=== PATIENT | male | born 1975 | race Hispanic/Latino ===

== ENCOUNTER 2020-02-10 23:06 | Inpatient (IN) | payer SELFPAY ==
[2020-02-10] MEDS ORDERED: Boostrix 0.5 ML (Tdap) VIAL ONE (23:09)
[2020-02-10] MEDS ORDERED: Fentanyl 100 MCG/2 ML VIAL ONE ×2 (23:15→23:30)
[2020-02-10 23:31] LABS: #Basophils 0.1 thou/uL (0.0-0.2); #Eosinphils 0.1 thou/uL (0.0-0.7); #Lymphocytes 3.2 thou/uL (1.20-3.40); #Monocytes 0.7 thou/uL (0.11-0.59); %Basophils 0.8 % (0.0-1.0); %Eosinophils 1.4 % (0.0-10.0); %Lymphocytes 35.3 % (21.0-51.0); %Monocytes 7.3 % (0.0-10.0); %Neutrophils 55.3 % (42.0-75.0); Hemoglobin 17.4 g/dL (14.0-18.0); Mean Corpuscular HGB CONC 33.5 g/dL (32.0-36.0); Mean Corpuscular Hemoglobin 30.4 pg (27.0-31.0); Mean Corpuscular Volume 90.8 fL (78.0-98.0); Mean Platelet Volume 8.4 fL (7.4-10.4); Platelet Count 288 thou/uL (130-400); RBC Distribution Width 12.1 % (11.5-14.5); Red Blood Cell (RBC) Count 5.71 mill/uL (4.70-6.10); White Blood Cell (WBC) Count 9.1 thou/uL (4.8-10.8)
[2020-02-10 23:45] LABS: INR-International Normal Ratio 0.9; Prothrombin Time 12.1 sec (12.0-14.7)
[2020-02-10 23:46] LABS: PTT 33.2 sec (22.9-36.1)
[2020-02-10 23:53] LABS: ALT (SGPT) 43 U/L (8-55); AST (SGOT) 31 U/L (5-34); Albumin 4.6 g/dL (3.5-5.0); Alkaline Phosphatase 81 U/L (40-110); Anion Gap 17 mmol/L (10-20); BUN (Urea Nitrogen) 9 mg/dL (8.9-20.6); Bilirubin, Total 0.3 mg/dL (0.2-1.2); Calc. Creatinine Clearance 0 mL/min (70-130); Calcium 9.1 mg/dL (7.8-10.44); Carbon Dioxide 25 mmol/L (22-29); Chloride 105 mmol/L (98-107); Estimated GFR-MDRD 90; Globulin 3.9 g/dL (2.4-3.5); Glucose 119 mg/dL (70-105); Protein, Total 8.5 g/dL (6.0-8.3); Sodium 143 mmol/L (136-145)
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
[2020-02-11 00:10] LABS: Phosphorus 5.3 mg/dL (2.3-4.7)
[2020-02-11 00:14] LABS: Magnesium 2.6 mg/dL (1.6-2.6)
[2020-02-11] MEDS ORDERED: Dextrose 5% in Water 1,000 ML IV PRN (00:26)
[2020-02-11] MEDS ORDERED: Morphine 4 MG/ML VIAL SLOW IVP PRN (00:26)
[2020-02-11] MEDS ORDERED: Ondansetron PF 4 MG/2 ML Vial IVP PRN (00:26)
[2020-02-11] MEDS ORDERED: Dextrose 50% Abboject 50 ML SYRINGE SLOW IVP PRN (00:26)
[2020-02-11] MEDS ORDERED: Cyclobenzaprine 10 MG TAB PO PRN (00:38)
[2020-02-11] MEDS ORDERED: Heparin 10,000 UNITS/ 10 ML VIAL ONE ×2 (00:57→07:48)
[2020-02-11] MEDS ORDERED: Heparin 5,000 UNITS/ML VIAL ONE (00:57)
[2020-02-11] MEDS ORDERED: Bupivacaine PF 0.5% 30 ML VIAL ONE (00:57)
[2020-02-11] MEDS ORDERED: Sodium Chloride 0.9% 10 ML ONE ×2 (00:58→02:58)
[2020-02-11] MEDS ORDERED: Hetastarch 6% 500 ML 0 ML ONE (00:58)
[2020-02-11] MEDS ORDERED: Bacitracin Zinc Ointment 30 gm TUBE ONE (00:58)
[2020-02-11] MEDS ORDERED: Lidocaine 2% PF 5 ML VIAL ONE ×2 (00:58→07:43)
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
[2020-02-11] MEDS ORDERED: Thrombin 5000 UNITS/5 ML VIAL ONE (00:59)
[2020-02-11] MEDS ORDERED: HYDROmorphone 2 MG/ML VIAL ONE (01:00)
[2020-02-11] MEDS ORDERED: Fentanyl 250 MCG/5 ML VIAL ONE (01:00)
[2020-02-11] MEDS ORDERED: Midazolam HCl 2 mg/2 ml Vial ONE (01:00)
[2020-02-11 01:15] LABS: SARS-CoV-2 NAA Rapid Test DETECTED (NotDetected)
[2020-02-11] MEDS ORDERED: PHENYLEPHRINE-NS 100 MCG/ML 10 ML SYRINGE ONE ×2 (05:51→10:21)
[2020-02-11] MEDS ORDERED: Hetastarch 6% 500 ML 500 ML ONE (07:18)
[2020-02-11] MEDS ORDERED: Phenylephrine 10 MG/ML VIAL ONE ×2 (07:18→08:22)
[2020-02-11] MEDS ORDERED: Succinylcholine 200 MG/10 ml SYRINGE FS ONE (10:21)
[2020-02-11] MEDS ORDERED: Rocuronium Bromide 10 MG/ML (10ML VIAL) ONE (10:21)
[2020-02-11] MEDS ORDERED: Dexamethasone 20 MG/5 ML VIAL ONE (10:21)
[2020-02-11] MEDS ORDERED: Ketorolac Tromethamine 30 MG/ML VIAL ONE (10:21)
[2020-02-11] MEDS ORDERED: Lidocaine 1% PF 5 ML VIAL ONE (10:21)
[2020-02-11] MEDS ORDERED: PROPOFOL 200 MG/20 ML VIAL ONE (10:21)
[2020-02-11] MEDS ORDERED: Ondansetron PF 4 MG/2 ML Vial ONE (10:21)
[2020-02-11] MEDS ORDERED: Glycopyrrolate 0.2 MG/ML 5 ML SYRINGE ONE (10:21)
[2020-02-11] MEDS ORDERED: diphenhydrAMINE 50 MG/ML VIAL ONE (10:21)
[2020-02-11] MEDS ORDERED: Ondansetron HCl/PF 4 MG/2 ML Vial IVP PRN (10:52)
[2020-02-11] MEDS ORDERED: Promethazine HCl 25 MG/ML VIAL SLOW IVP PRN (10:52)
[2020-02-11] MEDS ORDERED: Promethazine HCl 25 MG/ML VIAL IM PRN ×2 (10:52→12:06)
[2020-02-11] MEDS: Sodium Chloride 0.9% 1,000 ML IV SCH ×3 (11:00→15:28)
[2020-02-11] MEDS: Acetaminophen 500 MG TAB PO SCH ×5 (11:52→23:59)
[2020-02-11] MEDS: traMADol HCl 50 MG TAB PO SCH ×3 (11:53→18:20)
[2020-02-11] MEDS: Famotidine/PF 20 mg/2ml Vial SLOW IVP SCH ×2 (11:53→20:13)
[2020-02-11] MEDS ORDERED: Heparin 25,000 units/D5W 500 ML IV SCH (12:30)
[2020-02-11] MEDS ORDERED: traMADol HCl 50 MG TAB ONE (13:07)
[2020-02-11] MEDS: Gabapentin 300 MG CAP PO SCH ×3 (13:10→20:12)
[2020-02-11] MEDS: Senokot S 8.6-50 MG TAB PO SCH ×2 (13:10→20:11)
[2020-02-11] MEDS: Polyethylene Glycol 3350 17 GM Packet PO SCH (13:10)
[2020-02-11 13:28] LABS: Lactic Acid 1.6 mmol/L (0.5-2.2)
[2020-02-11 14:09] VITALS: BMI 30.4
[2020-02-11] MEDS ORDERED: Gabapentin 300 MG CAP ONE (14:26)
--- NOTE | 2020-02-11 14:33 | RAD ---
RIGHT WRIST: 02/11/20 Three fluoroscopic views are presented. INDICATIONS: Intraoperative imaging during reduction procedure. FINDINGS/IMPRESSION: Images demonstrate two metallic screws transfixing the distal ulna. POS: [facility]
[2020-02-11 21:05] LABS: Amphetamine Not Detected (NotDetected); Benzodiazepine Screen Not Detected (NotDetected); Cocaine Metabolite Screen Not Detected (NotDetected); Medtox Reader # READER 4; Methamphetamine Not Detected (NotDetected); Opiate Screen Not Detected (NotDetected); Phencyclidine (PCP) Not Detected (NotDetected); THC/Cannabinoid Screen Not Detected (NotDetected); Tricyclic Screen Not Detected (NotDetected)
[2020-02-11 21:06] LABS: Barbiturates Screen Not Detected (NotDetected); Medtox Control Line Valid? VALID (VALID); Methadone Not Detected (NotDetected); Oxycodone Screen Not Detected (NotDetected)
[2020-02-11] MEDS: Oxazepam 10 MG CAP PO SCH (22:14)
--- NOTE | 2020-02-12 01:53 | PRG ---
DATE OF SERVICE: 02/11/2020 SUBJECTIVE: The patient was seen this evening during rounds. He was lying in bed, resting comfortably with no signs of acute distress. He reported pain is well controlled. Neurosensory function in his right upper extremity digits is normal and intact. He has tolerated his clear liquid diet. OBJECTIVE: VITAL SIGNS: Temperature 98.6, pulse 87, respirations 14, oxygen saturation 100% on room air, and blood pressure 120/79. GENERAL: Well-appearing middle-aged male, sitting up in bed with no signs of acute distress. PULMONARY: Equal chest rise and fall. Clear breath sounds bilaterally. No signs of acute respiratory distress. CARDIAC: Regular rate and rhythm. GI: Abdomen is soft, nontender, and nondistended. EXTREMITIES: 2+ pulses in bilateral lower and left upper extremity. Right upper extremity with a cap refill. Motor and sensation in digits are warm. NEUROLOGIC: GCS is 15. ASSESSMENT: 1. Avulsion laceration to right medial wrist, about 6 to 8 cm. 2. Right distal radius and ulnar dislocation with radial fracture, open. 3. Acute alcohol intoxication, resolving. PLAN: Discontinue Garcia. Discontinue IV fluids. Advance to regular diet. Continue heparin drip per Dr. Cooper's recommendations. We will follow up with Dr. oCoper to see if there is additional need for operative intervention in the future. Job ID: [id number]
[2020-02-12] MEDS: Oxazepam 10 MG CAP PO SCH ×3 (06:30→21:40)
[2020-02-12] MEDS: Acetaminophen 500 MG TAB PO SCH ×3 (06:30→17:49)
[2020-02-12] MEDS: traMADol HCl 50 MG TAB PO SCH ×4 (06:30→17:50)
[2020-02-12 07:32] LABS: Anion Gap 10 mmol/L (10-20); BUN (Urea Nitrogen) 10 mg/dL (8.9-20.6); Calc. Creatinine Clearance 167 mL/min (70-130); Calcium 7.6 mg/dL (7.8-10.44); Carbon Dioxide 27 mmol/L (22-29); Chloride 104 mmol/L (98-107); Estimated GFR-MDRD Greater than 90; Glucose 100 mg/dL (70-105); Magnesium 1.9 mg/dL (1.6-2.6); Phosphorus 2.5 mg/dL (2.3-4.7); Potassium 3.3 mmol/L (3.5-5.1); Sodium 138 mmol/L (136-145)
[2020-02-12 07:52] LABS: #Basophils 0.1 thou/uL (0.0-0.2); #Eosinphils 0.1 thou/uL (0.0-0.7); #Monocytes 1.1 thou/uL (0.11-0.59); #Neutrophils 5.8 thou/uL (1.40-6.50); %Basophils 0.5 % (0.0-1.0); %Eosinophils 0.8 % (0.0-10.0); %Monocytes 11.2 % (0.0-10.0); %Neutrophils 57.5 % (42.0-75.0); Hemoglobin 11.1 g/dL (14.0-18.0); Mean Corpuscular HGB CONC 33.8 g/dL (32.0-36.0); Mean Corpuscular Hemoglobin 31.6 pg (27.0-31.0); Mean Corpuscular Volume 93.4 fL (78.0-98.0); Mean Platelet Volume 8.8 fL (7.4-10.4); Platelet Count 190 thou/uL (130-400); RBC Distribution Width 11.9 % (11.5-14.5); Red Blood Cell (RBC) Count 3.51 mill/uL (4.70-6.10); White Blood Cell (WBC) Count 10.1 thou/uL (4.8-10.8)
[2020-02-12 07:54] LABS: Bacteria/HPF None Seen HPF (None Seen); Bilirubin Negative (Negative); Blood, Urine 1+ (Negative); Clarity Clear (Clear); Glucose, Urine (Dipstick) Normal (Negative); Ketone, Urine Negative (Negative); Leukocyte 25 Leu/uL (Negative); Nitrite Negative (Negative); Protein, Urine (Dipstick) 10 mg/dL (Neg-Trace); Specific Gravity, Urine 1.026 (1.002-1.036); Squamous Epithelial None Seen HPF (0-3); pH, Urine 6.5 (5.0-9.0)
[2020-02-12 07:56] LABS: Urine Culture Reflex Yes Yes
[2020-02-12] MEDS: Polyethylene Glycol 3350 17 GM Packet PO SCH (08:44)
[2020-02-12] MEDS: Folic Acid 1 MG TAB PO SCH (08:52)
[2020-02-12] MEDS: Gabapentin 300 MG CAP PO SCH ×3 (08:52→21:40)
[2020-02-12] MEDS: Multivitamin W/ Minerals 1 TAB PO SCH (08:52)
[2020-02-12] MEDS: Senokot S 8.6-50 MG TAB PO SCH ×2 (08:52→21:38)
[2020-02-12] MEDS: Thiamine 100 MG TAB PO SCH (08:52)
[2020-02-12] MEDS: Famotidine/PF 20 mg/2ml Vial SLOW IVP SCH ×2 (08:53→21:40)
[2020-02-12] MEDS ORDERED: FLU VACC QS2020-21(6MOS UP)/PF 60 MCG/0.5 ML SYRINGE IM ONE (09:00)
[2020-02-13] MEDS: Acetaminophen 500 MG TAB PO SCH ×4 (00:07→18:40)
[2020-02-13] MEDS: traMADol HCl 50 MG TAB PO SCH ×4 (00:08→18:48)
[2020-02-13] MEDS: Oxazepam 10 MG CAP PO SCH ×3 (06:00→22:03)
[2020-02-13 07:18] LABS: #Basophils 0.1 thou/uL (0.0-0.2); #Eosinphils 0.3 thou/uL (0.0-0.7); #Lymphocytes 2.9 thou/uL (1.20-3.40); #Monocytes 0.7 thou/uL (0.11-0.59); #Neutrophils 4.2 thou/uL (1.40-6.50); %Basophils 1.3 % (0.0-1.0); %Eosinophils 3.2 % (0.0-10.0); %Lymphocytes 35.3 % (21.0-51.0); %Monocytes 9.1 % (0.0-10.0); %Neutrophils 51.2 % (42.0-75.0); Hemoglobin 12.1 g/dL (14.0-18.0); Mean Corpuscular HGB CONC 33.7 g/dL (32.0-36.0); Mean Corpuscular Hemoglobin 30.5 pg (27.0-31.0); Mean Corpuscular Volume 90.6 fL (78.0-98.0); Mean Platelet Volume 8.4 fL (7.4-10.4); Platelet Count 209 thou/uL (130-400); RBC Distribution Width 11.7 % (11.5-14.5); Red Blood Cell (RBC) Count 3.97 mill/uL (4.70-6.10); White Blood Cell (WBC) Count 8.2 thou/uL (4.8-10.8)
[2020-02-13 07:35] LABS: Anion Gap 13 mmol/L (10-20); BUN (Urea Nitrogen) 7 mg/dL (8.9-20.6); Calc. Creatinine Clearance 163 mL/min (70-130); Calcium 8.2 mg/dL (7.8-10.44); Carbon Dioxide 27 mmol/L (22-29); Chloride 100 mmol/L (98-107); Estimated GFR-MDRD Greater than 90; Glucose 97 mg/dL (70-105); Magnesium 2.2 mg/dL (1.6-2.6); Phosphorus 2.7 mg/dL (2.3-4.7); Potassium 3.6 mmol/L (3.5-5.1); Sodium 136 mmol/L (136-145)
[2020-02-13] MEDS: Gabapentin 300 MG CAP PO SCH ×3 (09:14→22:03)
[2020-02-13] MEDS: Folic Acid 1 MG TAB PO SCH (09:14)
[2020-02-13] MEDS: Senokot S 8.6-50 MG TAB PO SCH ×2 (09:14→22:03)
[2020-02-13] MEDS: Famotidine/PF 20 mg/2ml Vial SLOW IVP SCH ×2 (09:14→22:04)
[2020-02-13] MEDS: Multivitamin W/ Minerals 1 TAB PO SCH (09:14)
[2020-02-13] MEDS: Thiamine 100 MG TAB PO SCH (09:14)
[2020-02-13] MEDS: Polyethylene Glycol 3350 17 GM Packet PO SCH (09:15)
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
[2020-02-14] MEDS: Acetaminophen 500 MG TAB PO SCH ×3 (00:22→12:04)
[2020-02-14] MEDS: traMADol HCl 50 MG TAB PO SCH ×3 (00:23→12:05)
[2020-02-14] MEDS: Oxazepam 10 MG CAP PO SCH (06:05)
[2020-02-14] MEDS: Polyethylene Glycol 3350 17 GM Packet PO SCH (09:21)
[2020-02-14] MEDS: Gabapentin 300 MG CAP PO SCH (09:22)
[2020-02-14] MEDS: Multivitamin W/ Minerals 1 TAB PO SCH (09:22)
[2020-02-14] MEDS: Famotidine/PF 20 mg/2ml Vial SLOW IVP SCH (09:22)
[2020-02-14] MEDS: Thiamine 100 MG TAB PO SCH (09:22)
[2020-02-14] MEDS: Folic Acid 1 MG TAB PO SCH (09:22)
[2020-02-14 10:08] VITALS: TEMP 97.7
[2020-02-14] MEDS: Senokot S 8.6-50 MG TAB PO SCH (12:04)
[2020-02-14 14:46] VITALS: BP 117/87
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
== END 2020-02-14 14:47 | disposition home or self-care (01) | DRG 510 ==
LOC: ERS 23:06 → EEVIPCON 23:06 → SDC/OP 02-11 01:47 → IMCU/EMU 02-11 15:09 → SURG A 02-12 11:43
PROVIDERS: ADMIT Surgery; ATTEND Surgery
PROC: 0PSK04Z Reposition Right Ulna with Internal Fixation Device, Open Approach (ICD-10-PCS; principal; 2020-02-11)
PROC: 0PBM0ZZ Excision of Right Carpal, Open Approach (ICD-10-PCS; 2020-02-11)
PROC: 03Q90ZZ Repair Right Ulnar Artery, Open Approach (ICD-10-PCS; 2020-02-11)
PROC: 01Q40ZZ Repair Ulnar Nerve, Open Approach (ICD-10-PCS; 2020-02-11)
PROC: 01Q50ZZ Repair Median Nerve, Open Approach (ICD-10-PCS; 2020-02-11)
DX: S52.691B Other fracture of lower end of right ulna, initial encounter for open fracture type I or II (principal); U07.1 COVID-19; Y90.8 Blood alcohol level of 240 mg/100 ml or more; S66.891A Other injury of other specified muscles, fascia and tendons at wrist and hand level, right hand, initial encounter; F10.129 Alcohol abuse with intoxication, unspecified; S52.591B Other fractures of lower end of right radius, initial encounter for open fracture type I or II; X99.1XXA Assault by knife, initial encounter
CPT/HCPCS: 36415; 76000; 80048; 80053; 80306; 80307; 81001; 83605; 83735; 84100; 85025; 85610; 85730; 86850; 86900; 86901; 87086; 90471; 90715; 96365; 96375; 96376; C1713; J0690; J1100; J1170; J1200; J1644; J1885; J2001; J2250; J2370; J2405; J2704; J3010; J3490; S0020; S0028; U0002